=== PATIENT | male | born 1995 | race Caucasian/White ===

== ENCOUNTER 2025-04-27 20:29 | Emergency (ER) | payer MEDICAID, SELFPAY ==
--- OUTSIDE RECORDS SUMMARY | 2025-04-27 20:32 | XMS_ITS | Clinical Summary ---
Author Organization [facility] Address [address] [place] [id number] Care Team Providers Care Health Information Internship Name Role Phone Stephen Schwarz MD Primary Care Provider Allergies No known active allergies Medications famotidine (PEPCID) 20 mg tabletIndications:S MAS (superior mesenteric artery syndrome) (HC),Anemia, unspecified type,RUQ pain Take 1 Tablet (20 mg) by mouth 2 times daily. 60 Tablet 11 2 Active ondansetron (ZOFRAN ODT) 4 mg disintegrating tabletIndications:A bdominal pain, unspecified abdominal location Place 1 Tablet (4 mg) on the tongue every 8 hours if needed for Nausea/Vomi ting. 10 Tablet 3 Active aluminum-magnesium hydroxide-simethico ne (MAALOX PLUS; MYLANTA) 200-200-20 mg/5 mL suspensionIndicatio ns:Abdominal pain, unspecified abdominal location Take 15 mL by mouth 4 times daily if needed for GI Upset. Shake Well. 355 mL 3 Active Active Problems Problem Noted Date Diagnosed Date Moderate protein-calorie malnutrition 11/19/2021 SMAS (superior mesenteric artery syndrome) Immunizations Immunization Administration Dates Next Due DTP 10/04/1996,04/27/1996,1995 ,1995 DTaP 01/06/2001 HIB PRP-OMP (PedvaxHIB) 10/04/1996,04/27/1996,,1995 HPV 9 (Gardasil 9) 01/07/2018,04/25/2015 Hepatitis B (Peds) 04/27/1996,1995, 995 Inactivated Polio Vaccine 01/06/2001 MMR 01/06/2001,10/04/1996 Oral Polio Vaccine 04/27/1996,1995, 996 Tdap 01/07/2018,04/14/2008 Varicella Vaccine 04/14/2008,06/14/1997 Family History Medical History Relation Name Comments Heart Disease Maternal Grandfather Cancer-breast Mother 2016 Cancer Paternal Aunt Cancer Paternal Grandfather Diabetes Paternal Grandfather Cancer-colon Paternal Grandmother Relation Name Status Comments Maternal Grandfather Mother Paternal Aunt Paternal Grandfather Paternal Grandmother Social History Tobacco Use Types Packs/Day Years Used Date Smoking Tobacco: Former Cigarettes Smokeless Tobacco: Never Tobacco Cessation:Counseling Given: Yes Alcohol Use Standard Drinks/Week Comments No 0 (1 standard drink = 0.6 oz pur e alcohol) PHQ-2 Answer Date Recorded PHQ-2 TOTAL SCORE 0 08/23/2021 Social Connections Answer Date Recorded Frequency of Communication with Friends and Fami ly Not on file 09/15/2021 Financial Resource Strain Answer Date R ecorded Difficulty of Paying Living Expenses Not on file 09/15/2021 Difficulty of Paying Living Expenses Not on file 09/15/2021 Sex and Gender Information Value Date Recorded Sex Assigned at Not on file Legal Sex Male 5:23 AM IS CONSULTANT Gender Identity Not on file Sexual Orientation Not on file Occupation Industry Job Start Date Job End Date student/[employer] Not on file Not on file Not on file Obstetrics History Last Filed Vital Signs Vital Sign Reading Time Taken Comments Blood Pressure 108/60 04/17/2023 1:54 PM CDT Pulse 64 04/17/2023 1:54 PM CDT Temperature 36.7 C (98.1 F) 04/16/2023 3:22 PM CDT Respiratory Rate 16 04/16/2023 3:22 PM CDT Oxygen Saturation 99% 04/16/2023 3:22 PM CDT Inhaled Oxygen Concentration - - Weight 57.2 kg (126 lb) 04/17/2023 1:54 PM CDT Height 170.2 cm (5' 7) 04/17/2023 1:54 PM CDT Body Mass Index 19.73 04/17/2023 1:54 PM CDT Plan of Treatment Health Maintenance Due Date Last Done Comments Depression screening for age 12+ 08/23/2022 08/23/2021, 03/05/2018, 01/07/2018 BMI (ht and wt on same day) for age 18+ 04/17/2024 04/17/2023, 11/14/2021, 11/01/2021, Additional history exists COVID-19 vaccine series ( season) 2024 Influenza Vaccine (#1) 2025 Tetanus booster 01/08/2028 01/07/2018, 04/14/2008 Hepatitis B series for 19+ Completed 04/27, 1995, 1995 HIV for age 15-65 Completed 11/22/2021 Hepatitis C screening for age 18-79 Completed 11/22/2021 Pneumococcal series for age 6-49 Aged Out No longer eligible based on patient's age to complete this topic Procedures Procedure Name Priority Date/Time Associated Diagnosis Comments EXPOSURE (BBF) RAPID HIV STAT 11/22/2021 10:15 AM IS CONSULTANT EXPOSURE (BBF) ANTI HCV STAT 11/22/2021 10:15 AM IS CONSULTANT from Last 3 Months or Most Recently Relevant to Health Maintenance Results * Patient Source Rapid HIV - Unknown HIV (11/22/2021 10:15 AM IS CONSULTANT) SOURCE RAPID HIV SCREEN Non-React valentin Non-Reactiv e, Invalid 11/22/2021 11:28 AM IS CONSULTANT [facility] Comment:A NONREACTIVE test r esult means that HIV-1 or HIV-2 antibodies and HIV-1 p24 antigen were not detected in the specimen. Blood BLOOD SPECIMEN / Unknown Venipuncture / Unknown 11/22/2021 10:15 AM IS CONSULTANT 11/22/2021 10:28 AM IS CONSULTANT Nahomy Zavala MD SEND OUTS Final Result [facility] [address] * Patient Source ANTI HCV (11/22/2021 10:15 AM IS CONSULTANT) HEPATITIS C ANTIBODY Non-React valentin Non-React valentin 11/22/2021 11:47 AM IS CONSULTANT [facility] Comment:Antibodies to HCV no t detected; does not exclude the possibility of exposure to HCV. Blood BLOOD SPECIMEN / Unknown Venipuncture / Unknown 11/22/2021 10:15 AM IS CONSULTANT 11/22/2021 10:29 AM IS CONSULTANT Nahomy Zavala MD SEND OUTS Final Result Performing Organization Address City/[facility]/ZIP Co de Phone Number [facility] [address] from Last 3 Months or Most Recently Relevant to Health Maintenance Insurance [facility] Advance Directives * Full Code (Latest Code Status on File) Date Activated Date Inactivated Comments 11/19/2021 1:11 PM 11/22/2021 1:59 PM Question Answer Comments Code Status Discussion: Reviewed Preferences * Full Code Date Activated Date Inactivated Comments 11/19/2021 7:07 AM 11/19/2021 1:11 PM Question Answer Comments Code Status Discussion: Unable to Assess Preferences, Provider to review later Care Teams Health Information Internship Relationship Specialty Start Date End Date Stephen Schwarz MD PCP - General 05/26/12
[2025-04-27 20:44] VITALS: BP 120/79; PULSE 81; RESP 16; TEMP 36.7; O2SAT 96; BMI 19.6
--- NOTE | 2025-04-27 20:51 | CRLHL7_ITS ---
For Patients: As a result of the Cures Act, medical imaging exams and procedure reports are released immediately into your electronic medical record. You may view this report before your referring provider. If you have questions, please contact your health care provider. Indication: Injury of right ankle. Technique: Right ankle 3 views. Comparison: None. Findings: Bones: Alignment is normal. No fractures or bone lesions. Joint spaces: Unremarkable. Soft tissues: Unremarkable. Impression: No acute fracture. Dictated by Bala Greer MD @ 04/27/2025 9:26:33 PM (Electronically Signed)
--- NOTE | 2025-04-27 20:57 | ED_ITS ---
HPI - Extremity Injury (Lower) General Date Seen: 04/27/25 Chief Complaint: Extremity Pain/Injury, Lower Stated Complaint: R foot pain/injury Time Seen by Provider: 04/27/25 20:57 Source: patient, family and RN notes reviewed Mode of arrival: ambulatory Limitations: no limitations History of Present Illness HPI Narrative: Jaunsz is a very pleasant 29-year-old male brought here today by family after sustaining a right ankle injury while trying to do a skateboard flip. 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 Otherwise he is healthy. He has chronic abdominal pain radiating to his back and that has not changed this evening. In regards to his right ankle most of the pain is on the outside. It denies any foot pain. Feels like his foot got caught behind him and he almost describes a hyper plantar flexion type of injury. Denies head injury. Does note a little low back pain but not severe stating he landed on his back on the ground when this occurred. Has not taken anything for pain. Movement increases discomfort. Related Data Home Medications ?Medication ?Instructions ?Recorded ?Confirmed No Known Home Medications 04/27/2504/15 Allergies Allergy/AdvReac Type Severity Reaction Status Date / Time No Known Drug Allergies Allergy Verified 04/27/25 20:48 Review of Systems Status of ROS: Reports: 6 or more systems reviewed and unremarkable except as noted in History and below [facility] Social History Smoking Status: Never smoker Do you use any of these nicotine containing products: None How often do you have a drink containing alcohol: never AUDIT-C Alcohol total score: 0 Non-prescribed substance use: denies use service: No Exam Narrative: Exam Narrative: Alert and oriented. [place] family present. Cachectic in appearance. No respiratory distress. Examination of the back shows no pain with palpation down the thoracic or lumbar spine. No obvious ecchymosis. Examination of the right ankle shows lateral malleolar edema. Tenderness noted malleolar bilaterally. No pain with palpation over the Achilles insertion navicular or 5th metatarsal. Sensation is intact. Const: Vital Signs, click to edit/add: Vital Signs - 24 hr 04/27/25 20:44 Temperature 98.0 F Pulse Rate [Pulse Oximeter] 81 Respiratory Rate 16 Blood Pressure [Ri ght Upper Arm] 120/79 Pulse Oximetry 96 Oxygen Delivery Me thod Room Air Documenting provider has reviewed patient's vital signs: yes Course Course ED Course: Differential diagnosis includes right ankle sprain, fracture. Will obtain three view of the right ankle. Did briefly also talk about patient's ongoing issues with difficulty with eating. Recommend follow-up for retest of H pylori as it sounds like he may have been positive in the past. May also suggest repeat endoscopy/colonoscopy. Vital Signs Vital signs: Initial Vital Signs Temperature 98.0 F 04/27/25 20:44 Temperature Source Temporal Artery Scan 04/27/25 20:44 Pulse Rate 81 04/27/25 20:44 Pulse Rhythm Regular 04/27/25 20:44 Respiratory Rate 16 04/27/25 20:44 Blood Pressure 120/79 04/27/25 20:44 Blood Pressure Mean 92 04/27/25 20:44 Blood Pressure Position Sitting 04/27/25 20:44 Pulse Oximetry 96 04/27/25 20:44 Oxygen Delivery Method Room Air 04/27/25 20:44 Vital Signs Temperature 98.0 F 04/27/25 20:44 Pulse Rate 81 04/27/25 20:44 Respiratory Rate 16 04/27/25 20:44 Blood Pressure 120/79 04/27/25 20:44 Pulse Oximetry 96 04/27/25 20:44 Oxygen Delivery Method Room Air 04/27/25 20:44 Temperature 98.0 F 04/27/25 20:44 Pulse Rate 81 04/27/25 20:44 Respiratory Rate 16 04/27/25 20:44 Blood Pressure 120/79 04/27/25 20:44 Pulse Oximetry 96 04/27/25 20:44 Oxygen Delivery Method Room Air 04/27/25 20:44 MDM - Extremity Injury (Lower) MDM Narrative Medical decision making narrative: 1. Right ankle sprain -evidence of fracture noted. Recommend continued icing (not on bare skin), elevation and rest. Crutches and cam walker at this time. Follow-up with orthopedics if not improving over the next week. Need MRI and or PT. Tylenol or ibuprofen as needed for discomfort. 2. Disposition-home at this time. Return for worsening symptoms and as needed. Imaging Data Right ankle x-ray: Attestation: I have reviewed the pertinent imaging results. My impression: I do not note any acute fracture. Radiologist's impression: Bones: Alignment is normal. No fractures or bone lesions. Joint spaces: Unremarkable. Soft tissues: Unremarkable. Impression: No acute fracture. Discharge Plan Discharge Clinical Impression: Ankle sprain and strain Patient Disposition: Home, Self-Care Condition: Unchanged Additional Instructions: Wear cam walker for support. Use crutches so that not all of your weight is on your ankle. Ibuprofen or Tylenol as needed for discomfort. Follow-up with Orthopedics for ongoing pain stiffness or as needed. The phone number is [phone] Try to keep your leg elevated. Ice as needed to ankle. Prescriptions: No Action No Known Home Medications Follow Up/Referrals: Provider,Not a Local [Primary Care Provider, Family Practice] Stand Alone Forms: [employer] Info Instructions
== END 2025-04-27 21:48 | disposition home or self-care (01) ==
PROVIDERS: Emergency Provider Family Medicine
DX: S93.401A Sprain of unspecified ligament of right ankle, initial encounter (principal); Y93.51 Activity, roller skating (inline) and skateboarding
CPT/HCPCS: 73610; 99283; 99284